=== PATIENT | female | born 1970 | race Hispanic/Latino ===

== ENCOUNTER 2017-04-15 11:18 | Emergency (ER) | payer BC ==
[2017-04-15 12:12] LABS: ADD MANUAL DIFF? NO
--- NOTE | 2017-04-15 12:13 | ED PDOC ---
Arrival/HPI - General Historian: Patient - History of Present Illness Time/Duration: < week Symptom Onset: Gradual Symptom Course: Unchanged Quality: Aching Severity Level: 5 Activities at Onset: Rest Context: Home - General Chief Complaint: Headache Time Seen by Provider: 04/15/17 11:19 - History of Present Illness Narrative History of Present Illness (Text): 04/15/17 12:13 This is a 47Y F with PMH of subdural fistula s/p embolization, CVA, hypothyroidism came to the ED for dizziness and headache x 2 days. Patient reports the dizziness is intermittent and feels as if it is more light headedness than the room spinning. She does not know what makes it worse. She also complains of L pinky numbness/tingling that is intermittent. She denies CP , SOB, n/v/d, dysuria or hematuria. The headache is described as intermittent and feels as a generalized pressure. She saw her PMD yesterday. She was treated last year for the subdural fistula at [facility]. (Arlen Kelly) Past Medical History - Provider Review Nursing Documentation Reviewed: Yes - Infectious Disease Hx of Infectious Diseases: None - Cardiac Hx Cardiac Disorders: Yes Other/Comment: L sided bundle branch - Pulmonary Hx Respiratory Disorders: No - Neurological Hx Neurological Disorder: Yes HX Cerebrovascular Accident: Yes (s/p dural fistula embolization) - HEENT Hx HEENT Disorder: No - Renal Hx Renal Disorder: No - Endocrine/Metabolic Hx Endocrine Disorders: Yes Hx Hypothyroidism: Yes - Hematological/Oncological Hx Blood Disorders: No - Integumentary Hx Dermatological Disorder: No - Musculoskeletal/Rheumatological Hx Musculoskeletal Disorders: Yes Other/Comment: Two knee surgeries for torn ligament and cartilage, Foot surgery for shattered the bottom bone of right foot, Left elbow for nerve damage - Gastrointestinal Hx Gastrointestinal Disorders: No - Genitourinary/Gynecological Hx Genitourinary Disorders: Yes Other/Comment: Myomectomy and - Psychiatric Hx Psychophysiologic Disorder: No Hx Substance Use: No - Surgical History Hx Musculoskeletal Surgery: Yes Hx Orthopedic Surgery: Yes Other/Comment: dural fistula embolization - Anesthesia Hx Anesthesia: Yes Hx Anesthesia Reactions: No Family/Social History - Physician Review Nursing Documentation Reviewed: Yes Family/Social History: Diabetes Smoking Status: Never Smoked Hx Alcohol Use: No Hx Substance Use: No Allergies/Home Meds Allergies/Adverse Reactions: Allergies No Known Allergies Allergy (Verified 04/15/17 11:28) Home Medications: Home Meds Medication Instructions Recorded Confirmed DiphenhydrAMINE [Benadryl] 25 mg PO PRN PRN 04/15/17 04/15/17 Levothyroxine [Synthroid] 50 mcg PO DAILY 04/15/17 04/15/17 Review of Systems - Physician Review All systems were reviewed & negative as marked: Yes - Review of Systems Constitutional: Normal. absent: Fatigue, Fevers Eyes: Normal. absent: Vision Changes ENT: Normal. absent: Hearing Changes Respiratory: Normal. absent: SOB, Cough Cardiovascular: Normal. absent: Chest Pain, Palpitations Gastrointestinal: Normal. absent: Abdominal Pain, Diarrhea, Nausea, Vomiting Genitourinary Female: Normal. absent: Dysuria, Frequency Musculoskeletal: Normal. absent: Arthralgias, Back Pain Skin: Normal. absent: Rash, Pruritis Neurological: Headache, Dizziness, Other (L pinky numbness ) Endocrine: Normal. absent: Diaphoresis Hemo/Lymphatic: Normal. absent: Adenopathy, Easy Bleeding Psychiatric: Normal. absent: Anxiety, Depression Physical Exam Vital Signs Reviewed: Yes Temperature: Afebrile Blood Pressure: Normal Pulse: Regular Respiratory Rate: Normal Appearance: Positive for: Well-Appearing, Non-Toxic, Comfortable Pain Distress: None Mental Status: Positive for: Alert and Oriented X 3 - Systems Exam Head: Present: Atraumatic, Normocephalic Pupils: Present: PERRL Extroacular Muscles: Present: EOMI Conjunctiva: Present: Normal Mouth: Present: Moist Mucous Membranes Neck: Present: Normal Range of Motion Respiratory/Chest: Present: Clear to Auscultation, Good Air Exchange. No: Respiratory Distress, Accessory Muscle Use Cardiovascular: Present: Regular Rate and Rhythm, Normal S1, S2. No: Murmurs Abdomen: Present: Normal Bowel Sounds. No: Tenderness, Distention, Peritoneal Signs Back: Present: Normal Inspection Upper Extremity: Present: Normal Inspection. No: Cyanosis, Edema Lower Extremity: Present: Normal Inspection. No: Edema Neurological: Present: GCS=15, CN II-XII Intact, Speech Normal, Motor Func Grossly Intact, Normal Sensory Function Skin: Present: Warm, Dry, Normal Color. No: Rashes Psychiatric: Present: Alert, Oriented x 3, Normal Insight, Normal Concentration Vital Signs Temp Pulse Resp BP Pulse Ox 04/15/17 11:19 98.2 F 81 18 138/81 97 Medical Decision Making Re-evaluation Time: 13:13 Reassessment Condition: Improved - Lab Interpretations I have reviewed the lab results: Yes Interpretation: All labs normal - RAD Interpretation Auto Transmission Mechanic: Radiologist - EKG Interpretation Interpreted by ED Physician: Yes Type: 12 lead EKG Comparison: Similar to previous EKG ED Course and Treatment: 04/15/17 12:32 Seen and examined with the resident. Our history and physical exam reveals an obese woman who is complaining of a three-day history of a left sided headache with numbness along the left side of her face. She's had similar headaches previously. She was seen by her PMD yesterday and given muscle relaxers, but is no better. She is extremely anxious as she required embolization through a catheter approximately one year ago. There is some nausea but no vomiting. No weakness. No difficulty with ADLs. Normal gait. Normal speech. She reports a previous CVA, with no sequela. Her neurological exam is normal today. (Lion Gonzalez) 04/15/17 12:18 Impression: This is a 47Y F with PMH of subdural fistula s/p embolization, CVA, hypothyroidism came to the ED for dizziness and headache x 2 days. Plan: -- CBC, CMP, Cardiac ISO, U/A -- EKG -- CT head -- Reassess Prior Visits: Notes and results from previous visits were reviewed. Discharge Instructions: Re-evaluation. Patient feels better. Discussed results and plan with patient who expresses understanding. All questions answered and there is agreement with the plan to discharge home with instructions. Patient stable for discharge. Return if symptoms persist or worsen. (Arlen Kelly) - Lab Interpretations Lab Results: 04/15/17 12:05 04/15/17 12:05 Lab Results 04/15/17 12:05: Sodium 140, Potassium 3.8, Chloride 104, Carbon Dioxide 25, Anion Gap 15, BUN 13, Creatinine 0.8, Est GFR ( Amer) > 60, Est GFR (Non- Af Amer) > 60, Random Glucose 78, Calcium 9.4, Total Bilirubin 1.1, AST 25, ALT 38, Alkaline Phosphatase 104, Lactate Dehydrogenase 399, Total Creatine Kinase 102, Troponin I < 0.01, Total Protein 8.0, Albumin 4.3, Globulin 3.6, Albumin/ Globulin Ratio 1.2 04/15/17 12:05: Urine Color Yellow, Urine Appearance Clear, Urine pH 6.5, Ur Specific Ossian <= 1.005, Urine Protein Negative, Urine Glucose (UA) Negative, Urine Ketones Negative, Urine Blood Trace-lysed H, Urine Nitrate Negative, Urine Bilirubin Negative, Urine Urobilinogen 0.2, Ur Leukocyte Esterase Negative , Urine RBC 1 - 3, Urine WBC 0 - 2, Ur Epithelial Cells 4 - 5, Urine Bacteria Mod 04/15/17 12:05: WBC 9.4 D, RBC 4.48, Hgb 13.3, Hct 40.0, MCV 89.3, MCH 29.7, MCHC 33.3, RDW 13.5, Plt Count 443, MPV 10.2, Gran % 68.9 H, Lymph % (Auto) 24.7 , Travis % (Auto) 5.0, Eos % (Auto) 1.0 L, Baso % (Auto) 0.4, Gran # 6.44, Lymph # 2.3, Travis # 0.5, Eos # 0.1, Baso # 0.04 - RAD Interpretation Narrative RAD Interpretations (Text): 04/15/17 13:11 CT head showed no acute intracranial process. Please see full report for more details. (Arlen Kelly) Radiology Orders: 04/15/17 11:46 HEAD W/O CONTRAST [CT] Stat - EKG Interpretation EKG Interpretation (Text): 04/15/17 12:28 Hr At 83. QTc prolonged. Other intervals normal. LBBB and NSR. (Arlen Kelly) - Medication Orders Current Medication Orders: Acetaminophen (Tylenol 325mg Tab) 650 mg PO STAT STA Stop: 04/15/17 13:12 Disposition/Present on Arrival - Present on Arrival Any Indicators Present on Arrival: No History of DVT/PE: No History of Uncontrolled Diabetes: No Urinary Catheter: No History of Decub. Ulcer: No History Surgical Site Infection Following: None - Disposition Have Diagnosis and Disposition been Completed?: Yes Disposition Time: 13:12 Patient Plan: Discharge - Disposition Diagnosis: Headache Disposition: HOME/ ROUTINE Condition: FAIR Discharge Instructions (ExitCare): Migraine Headache (ED) Print Language: FRISIAN Additional Instructions: Ms. Almendarez, thank you for letting us take care of you today. Your provider was Dr. Kelly. You were treated for headache. The emergency medical care you received today was directed at your acute symptoms. If you were prescribed any medication, please fill it and take as directed. It may take several days for your symptoms to resolve. Return to the Emergency Department if your symptoms worsen, do not improve, or if you have any other problems. Please contact your doctor or call one of the physicians/clinics you have been referred to that are listed on the Patient Visit Information form that is included in your discharge packet. Bring any paperwork you were given at discharge with you along with any medications you are taking to your follow up visit. Our treatment cannot replace ongoing medical care by a primary care provider (PCP) outside of the emergency department. Thank you for allowing the [facility] team to be part of your care today. If you had an X-Ray or CT scan: A Radiologist will review the ED reading if any change in treatment is needed we will contact you. Please follow up with PMD in 1 week. Take Tylenol as needed for headache. Referrals: Roslyn Godinez MD [Primary Care Provider] - Follow up with primary
[2017-04-15 12:23] LABS: BASO # 0.04 K/mm3 (0.0-2.0); BASO % 0.4 % (0.0-3.0); EOS # 0.1 (0.0-0.7); GRAN # 6.44 (1.4-6.5); GRAN % 68.9 % (50.0-68.0); LYMPH # 2.3 (1.2-3.4); LYMPH % 24.7 % (22.0-35.0); MEAN CELL VOLUME 89.3 fL (80.0-105.0); MEAN CORPUSCULAR HEMOGLOBIN 29.7 pg (25.0-35.0); MEAN CORPUSCULAR HGB CONC 33.3 g/dl (31.0-37.0); MEAN PLATELET VOLUME 10.2 fl (7.0-11.0); MONO # 0.5 (0.1-0.6); PLATELET COUNT 443 10^3/uL (120.0-450.0); RED CELL DISTRIBUTION WIDTH 13.5 % (11.5-14.5); WHITE BLOOD COUNT 9.4 10^3/ul (4.5-11.0)
[2017-04-15 12:24] LABS: PH,URINE 6.5 (4.7-8.0); URINE BILIRUBIN NEGATIVE (NEGATIVE); URINE BLOOD TRACE-LYSED (NEGATIVE); URINE GLUCOSE (UA) NEGATIVE (NEGATIVE); URINE KETONE NEGATIVE (NEGATIVE); URINE LEUKOCYTE ESTERASE NEGATIVE Leu/uL (NEGATIVE); URINE PROTEIN NEGATIVE mg/dL (<30 mg/dL); URINE UROBILINOGEN 0.2 E.U./dL (<1 E.U./dL)
[2017-04-15 12:28] LABS: ALB/GLOB RATIO 1.2 (1.1-1.8); ALKALINE PHOSPHATASE 104 U/L (38-133); ALT/SGPT 38 U/L (7-56); AST/SGOT 25 U/L (15-39); BILIRUBIN,TOTAL 1.1 mg/dL (0.2-1.3); BLOOD UREA NITROGEN 13 mg/dL (7-21); CALCIUM 9.4 mg/dL (8.4-10.5); CARBON DIOXIDE 25 mmol/L (21-33); CHLORIDE 104 mmol/L (98-107); GFR AFRICAN-AMERICAN > 60; GLUCOSE,RANDOM 78 mg/dL (70-110); POTASSIUM 3.8 mmol/L (3.6-5.0); SODIUM 140 mmol/L (132-148)
[2017-04-15 12:29] LABS: URINE APPEARANCE CLEAR (CLEAR); URINE COLOR YELLOW (YELLOW)
[2017-04-15 12:39] LABS: TROPONIN I < 0.01 ng/mL
[2017-04-15 12:46] LABS: URINE BACTERIA MOD (NEG); URINE WBC 0 - 2 /hpf (0-6)
--- NOTE | 2017-04-15 13:03 | CT ---
PROCEDURE: CT HEAD WITHOUT CONTRAST. HISTORY: Dizziness, history of stroke COMPARISON: None available. TECHNIQUE: Axial computed tomography images were obtained through the head/brain without intravenous contrast. Radiation dose: Total exam DLP = 701.84 mGy-cm. This CT exam was performed using one or more of the following dose reduction techniques: Automated exposure control, adjustment of the mA and/or kV according to patient size, and/or use of iterative reconstruction technique. FINDINGS: HEMORRHAGE: No intracranial hemorrhage. BRAIN: There is focal gliosis in the right parieto-occipital region. Velarde-white matter differentiation is preserved. There is no mass, mass effect or abnormal extra-axial fluid collection.Status post right occipital craniotomy with extensive streak artifacts limiting evaluation of the posterior fossa. VENTRICLES: Unremarkable. No hydrocephalus. CALVARIUM: Status post right occipital craniotomy, otherwise within normal limits. PARANASAL SINUSES: Predominantly clear. MASTOID AIR CELLS: Predominantly clear. OTHER FINDINGS: None. IMPRESSION: No acute intracranial abnormality. Additional comments as described above.
[2017-04-15] MEDS ORDERED: Apap-Butalbital-Caffeine 325-50-40mg Tab PO ONE (13:08)
[2017-04-15 13:22] VITALS: BP 112/71; PULSE 80; RESP 19; TEMP 98; O2SAT 96
--- NOTE | 2017-04-15 16:10 | CARD ---
APPROVED REPORT EKG Measurement Heart [id number] <Conclusion> Normal sinus rhythm Left bundle branch block Abnormal ECG
== END 2017-04-15 13:43 | disposition home or self-care (01) ==
LOC: ED 11:18
DX: R51 Headache (principal); I44.7 Left bundle-branch block, unspecified; Z86.73 Personal history of transient ischemic attack (TIA), and cerebral infarction without residual deficits